=== PATIENT | female | born 1975 | race Two or more races ===

== ENCOUNTER 2022-06-15 20:22 | Emergency (ER) | payer OTHER ==
[~2022-06-15] VITALS: Ht 167.6 cm; Wt 85.3 kg
[~2022-06-15 20:22] MED LIST: AZITHROMYCIN500 MG PO; CONEX TABLET1 EACH PO; FIORICET 50-321 EACH PO; NABUMETONE500 MG PO; PERCOCET 5/3251 TAB PO; TUSSIONEX PENNKI5 ML PO
[2022-06-15] MEDS ORDERED: IRBESARTAN150 MG PO (20:35)
== END 2022-06-15 23:46 | disposition home or self-care (01) ==
LOC: ER 20:22
DX: I10 Essential (primary) hypertension (principal); Z20.822 Contact with and (suspected) exposure to COVID-19

== ENCOUNTER 2022-12-22 09:42 | Inpatient (IN) | payer OTHER ==
[~2022-12-22] VITALS: Ht 167.6 cm; Wt 83.9 kg
[~2022-12-22 09:42] MED LIST changes: +IRBESARTAN150 MG PO
[2022-12-23 09:43] LABS: HEMATOCRIT 39.9 % (36.0-45.00); HEMOGLOBIN 13.7 g/dL (12.0-15.00); MEAN CELL VOLUME 86.2 fL (80.00-100.00); MEAN CORPUSCULAR HEMOGLOBIN 29.5 pg (27.00-32.0); MEAN CORPUSCULAR HGB CONC 34.3 g/dl (32.0-36.0); PLATELET COUNT 351 K/uL (150-450); RED BLOOD COUNT 4.63 M/uL (4.00-6.00); RED CELL DISTRIBUTION WIDTH 14.9 % (11.5-14.5)
[2022-12-23 10:02] LABS: INR 0.94; PROTHROMBIN TIME 9.9 SECONDS (9.0-11.5)
[2022-12-23 10:03] LABS: PH,URINE 6.5 (5.0-8.0); URINE APPEARANCE Clear; URINE BILIRRUBIN Negative (NEGATIVE); URINE BLOOD Small; URINE COLOR Yellow; URINE GLUCOSE Negative (NEGATIVE); URINE LEUKOCYTE Negative; URINE NITRATE Negative; URINE PROTEIN Negative (NEGATIVE); URINE UROBILINOGEN 0.2 E.U./dl
[2022-12-23 10:04] LABS: URINE EPITHELIAL CELLS 4.9 uL (0.0-38.8); URINE RBC 16.3 uL (0.0-20.8)
[2022-12-23] MEDS ORDERED: MEGESTROL ACETA40 MG PO (10:08)
[2022-12-23] MEDS ORDERED: CLONAZ PO (10:09)
[2022-12-23] MEDS ORDERED: TEMAZE PO (10:09)
[2022-12-23] MEDS ORDERED: OMEGA 3 1,0001 EACH PO (10:10)
[2022-12-23 10:29] LABS: ALBUMIN 4.1 gm/dL (3.4-5.0); BILIRUBIN TOTAL 0.77 mg/dL (0.3-1.2); CALCIUM 9.6 mg/dL (8.5-10.1); CREATININE SERUM 0.72 mg/dL (0.55-1.02); GFR 87.59; GLOBULINA 3.6 G/DL (2.4-3.5); POTASSIUM 4.29 mEq/L (3.5-5.1); TOTAL PROTEIN 7.7 gm/dL (6.4-8.2)
[2022-12-28] MEDS ORDERED: CLONAZEPAM0.5 MG (07:52)
[2022-12-28] MEDS ORDERED: RESTORIL30 MG (07:52)
[2022-12-28 17:40] LABS: HEMATOCRIT 40.2 % (36.0-45.00); HEMOGLOBIN 12.9 g/dL (12.0-15.00); MEAN CELL VOLUME 87.8 fL (80.00-100.00); MEAN CORPUSCULAR HEMOGLOBIN 28.1 pg (27.00-32.0); PLATELET COUNT 356 K/uL (150-450); RED BLOOD COUNT 4.58 M/uL (4.00-6.00); RED CELL DISTRIBUTION WIDTH 14.5 % (11.5-14.5)
[2022-12-30] MEDS ORDERED: SIMETHICONE125 M1 PO (06:46)
[2022-12-30] MEDS ORDERED: GABAPENTIN300 MG PO (06:46)
[2022-12-30] MEDS ORDERED: IBUPROFEN800 MG PO (06:46)
[2022-12-30] MEDS ORDERED: POLY119PG PO (06:46)
== END 2022-12-30 09:22 | DRG 743 ==
LOC: O/R 12-28 04:57 → OB/GYN 12-28 04:57 → SURH 12-28 07:00 → OB/GYN 12-28 10:22
PROVIDERS: ADMIT Obstetrics & Gynecology; ATTEND Obstetrics & Gynecology
PROC: 0UN00ZZ Release Right Ovary, Open Approach (ICD-10-PCS; 2022-12-28)
PROC: 0DNE0ZZ Release Large Intestine, Open Approach (ICD-10-PCS; 2022-12-28)
PROC: 0UT90ZZ Resection of Uterus, Open Approach (ICD-10-PCS; principal; 2022-12-28 07:00)
DX: N80.03 Adenomyosis of the uterus (principal); N72 Inflammatory disease of cervix uteri; Z20.822 Contact with and (suspected) exposure to COVID-19; N73.6 Female pelvic peritoneal adhesions (postinfective)